=== PATIENT | male | born 1970 | race Caucasian/White ===

== ENCOUNTER 2025-10-09 11:07 | Emergency (ER) | payer MEDICAID, SELFPAY ==
[2025-10-09] VITALS (8 sets, daily range): BP systolic 142–175; BP diastolic 67–86; PULSE 64–78; RESP 11–18; TEMP 36.4–36.6; O2SAT 98–100; BMI 31.2
--- NOTE | 2025-10-09 11:47 | RAD_ITS ---
RAD/Chest 1 View (Portable)
--- NOTE | 2025-10-09 11:49 | CM.ED ---
Social Work Date of referral: 10/09/25 Reason for referral: Advanced Care Directives (ACD's) not on file. Referred by: Social Work Identification Patient provided consent to social work visit. Floor Surfacer requested a copy of ACD's which patient stated his daughter in [place] has and stated that's where he would like to go in the future. Patient did not confirm whether or not he will try and get a copy of his ACD's sent to this hospital or not. In the paperwork that came from [facility], there was a piece of paper that indicated patient is full code. Heather Mendoza, CATERING TRUCK DRIVER, DRUM REEL CUTTER
--- NOTE | 2025-10-09 11:49 | ED.VIS.CHEST ---
HPI History of Present Illness Chief Complaint: Chest Pain Informant: patient and EMS Narrative Narrative: Patient is a 55-year-old male with a history of CAD and multiple stents presenting with acute onset left-sided chest pain radiating to the left leg. Brought by EMS from [facility], where he currently resides due to muscle weakness. - Onset of symptoms approximately 1 hour prior to arrival, beginning while wheeling himself in a wheelchair after preparing to smoke a cigarette. States he was pushing himself very hard - Describes chest pain as stabbing, located on the left side, radiating down to the left thigh. - Pain worsens with deep inspiration and movement of the left leg. - Denies dyspnea or other associated symptoms. - Has a history of 9 stents placed, with the most recent stent placed more than a year ago. - Denies any recent trauma or injury to the chest or leg. PFSH PFS Medical History Past heart attack Anemia Heart failure CKD (chronic kidney disease) COPD (chronic obstructive pulmonary disease) Cirrhosis Alcoholic dementia Kidney failure Allergy/AdvReac Type Severity Reaction Status Date / Time isosorbide Allergy Unknown PT UNSURE Verified 10/09/25 11:10 OF REACTION nefazodone Allergy Unknown PT UNSURE Verified 10/09/25 11:10 OF REACTION penicillin G Allergy Unknown PT UNSURE Verified 10/09/25 11:10 OF REACTION trazodone Allergy Unknown PT UNSURE Verified 10/09/25 11:10 OF REACTION Social History Smoking Status: Current every day smoker tobacco type: cigarettes ROS ROS ED Constitutional Constitutional ED: Denies chills or fever(s) Eyes Eyes: Denies change in vision or diplopia ENT ENT ED: Denies rhinorrhea or sore throat Cardiovascular Cardiovascular: Reports as per HPI and chest pain; Denies palpitations Respiratory/Chest Respiratory/Chest: Denies cough or dyspnea Gastrointestinal Gastrointestinal: Denies abdominal pain, diarrhea, nausea or vomiting Genitourinary Genitourinary ED: Denies dysuria or hematuria Musculoskeletal Musculoskeletal: Reports as per HPI, extremity pain and muscle weakness; Denies back pain or neck pain Integumentary Denies abscess or rash Neurologic Neurologic: Denies headache(s), paresthesias or weakness Psychiatric Psychiatric: Denies suicidal thoughts EXAM Physical Exam Const Vital Signs: 10/09/25 11:11 10/09/25 12:14 10/09/25 12:14 Temperature 97.5 F L Temperature Source Oral Pulse Rate 66 66 Respiratory Rate 18 11 L Blood Pressure 153/70 H Blood Pressure Mean 97 Pulse Ox 100 98 Oxygen Delivery Method Nasal Cannula Nasal Cannula Nasal Cannula Oxygen Flow Rate (L/min) 4 10/09/25 13:00 10/09/25 14:10 10/09/25 14:28 Temperature Temperature Source Pulse Rate 64 70 66 Respiratory Rate 15 18 Blood Pressure 175/86 H Blood Pressure Mean 115 Pulse Ox 98 98 Oxygen Delivery Method Nasal Cannula Nasal Cannula Oxygen Flow Rate (L/min) 3 3 10/09/25 15:03 10/09/25 15:46 Temperature Temperature Source Pulse Rate 66 64 Respiratory Rate 16 18 Blood Pressure 142/67 H Blood Pressure Mean 92 Pulse Ox 99 Oxygen Delivery Method Nasal Cannula Oxygen Flow Rate (L/min) 3 Positive well nourished and well developed General Appearance ED: well developed and NAD HEENT Reports moist mucous membranes normocephalic and atraumatic Eyes PERRL and EOMs intact bilaterally Neck full ROM and supple Chest Wall Chest Narrative: Reproducible pain in the left pectoral musculature near the axilla, which is also reproducible with the patient abducting his arms together against resistance outstretched in front of him. This reproduces the pain that he presents with. Lower in the rib cage he is nontender. Equal breath sounds are present bilaterally. There is no crepitance or subcutaneous emphysema or abnormal skin changes in these areas. Resp normal respiratory effort and clear to auscultation bilaterally Effort and Inspection: pain with movement LUE Cardio regular rate, regular rhythm and no murmurs Rate: Negative for tachycardic Peripheral Pulses: pulses 2+ throughout GI non-tender and non-distended Auscultation: normoactive bowel sounds Palpation: soft Back/Spine no CVA tenderness General Back: other FROM Extremity normal to inspection Extremity Narrative: Mildly tender in the left anterior distal thigh quadriceps, proximal to the patellar tendon which is nontender. All compartment soft and nondistended. Full range of motion of the knee and the hip without limitation and no tenderness at the greater trochanter or the knee. No bilateral calf tenderness. General Extremety ED: Yes edema and tenderness; Negative for pulses abnormal General Extremity: edema bilateral lower extremity Details: mild; Negative for pulses abnormal Neuro oriented x3, CN's II-XII intact bilaterally and no sensory deficits noted Neuro Narrative: Some muscle weakness in the legs but able to move them and lift them. No lateralizing neurologic deficits. Sensorium / Orientation: awake and alert Skin no rashes or lesions noted and no wounds MDM MDM MDM Narrative Medical decision making narrative: Assessment: The patient is a 55-year-old male with PMH of coronary artery disease status-post multiple prior stents, chronic kidney disease, and home supplemental oxygen dependence presenting for acute left-sided stabbing chest pain radiating to the left thigh after propelling himself in a wheelchair. Pain is reproducible with pectoral muscle contraction and palpation, worsened with deep inspiration and leg movement, and there is no associated diaphoresis or new dyspnea; baseline exertional dyspnea unchanged. Initial EKG shows bifascicular block without acute ischemic changes; serial troponins 112, 110, 107 ng/L are flat, arguing against acute coronary syndrome. One-view chest X-ray shows mild cardiomegaly and mild congestion without pulmonary edema. Taken together, findings favor musculoskeletal chest wall pain and left quadriceps myofascial pain (exam inconsistent with DVT); mild stable troponin elevation likely reflects chronic myopathy/renal dysfunction rather than acute injury. Plan: - Continued home 3 L O2 via nasal cannula during ED stay; patient remained saturating 99-100%. - Administered oral tramadol for chest/leg pain with good symptomatic improvement and subsequent BP normalization. - Administered nebulized albuterol for subjective dyspnea; mild symptomatic benefit reported. - B[facility] Sawyer Dr. Reina evaluated patient in ED; in agreement with disposition once troponins remained flat. - Patient counseled on tobacco cessation; advised to stop smoking. - Discharged home with instructions for supportive care, return precautions, and outpatient cardiology follow-up given stable serial troponins and benign exam. Diagnostics: - EKG: normal sinus rhythm with bifascicular block, no ST-T ischemic changes; no acute findings. Independently interpreted by Ramon zhu. - Chest X-ray (1 view): mild cardiomegaly, mild pulmonary congestion, no pulmonary edema. - Labs: Troponin-I 112 ng/L, repeat 110 ng/L, 4-hour 107 ng/L (flat); Serum creatinine 2.42 mg/dL (baseline unknown). Consultations: - Dr. Reina, cardiology, discussed case; agrees serial flat troponins and exam support chest wall pain; concurs with discharge if third troponin stable. Reevaluations: - After tramadol: BP improved to 142/67, pain reduced, no acute distress. - Post-albuterol: patient reports slight relief of dyspnea; lungs clear; SpO2 99-100% on 3 L NC. Lying left lateral decubitus with normal VS and no distress or tachypnea. - Final assessment after third troponin 107: patient comfortable, vital signs stable; deemed safe for discharge. Lab Data Attestation: I reviewed the patient's lab results. Labs: Laboratory Results - last 24 hr 10/09/25 10/09/25 11:50 14:00 WBC 7.1 RBC 2.98 L Hgb 8.7 L Hct 26.9 L MCV 90.3 MCH 29.2 MCHC 32.3 RDW Std Deviation 51.4 H RDW Coeff of Bria 15.7 H Plt Count 344 MPV 8.8 Immature Gran % (Auto) 0.300 Neut % (Auto) 71.0 H Lymph % (Auto) 17.8 L Page % (Auto) 4.8 Eos % (Auto) 5.1 H Baso % (Auto) 1.0 Absolute Neuts (auto) 5.1 Absolute Lymphs (auto) 1.27 Nucleated RBC % 0 Sodium 139 Potassium 5.1 Chloride 105 Carbon Dioxide 23.4 Anion Gap 10 BUN 48 H Creatinine 2.42 H Estim Creat Clear Calc 39.89 L Est GFR (MDRD) Non-Af 31 L BUN/Creatinine Ratio 19.7 Glucose 120 H Calcium 8.7 Troponin T High Sens 112 H* Troponin T Hi Sens 2 Hr 110 H* Radiography Diagnostic Testing: Clinical Impression(s) from Imaging Studies Chest X-Ray 10/09/25 11:47 IMPRESSION: Cardiomegaly with mild congestion. Reading Location: [facility] Rhythm Strip Rhythm Strip: Sinus Rhythm Rate: 65 Ectopy: None EKG Initial EKG: Attestation: I personally reviewed and interpreted this EKG as follows: Interpretation: Sinus Rhythm, No Acute Injury Pattern, RBBB and - (LPFB) Prior EKG tracings: not available for review Prior: No Prior Management Discussion w/another healthcare provider: Payroll Accounting Clerk (Nuno, cardiology - agrees musculoskeletal etiology, safe for d/c) Discharge Plan Triage Chief Complaint: Chest Pain ED Provider: Ramon Lord Dx/Rx/DC Orders Clinical Impression: Muscle strain of chest wall, Acute pain of left thigh, CKD (chronic kidney disease), Elevated troponin, Dependence on continuous supplemental oxygen, Tobacco abuse counseling Instructions: ED Chest Wall Strain Primary Care Provider: Matt Jacob Referrals: Matt Jacob, [Primary Care Provider, Medical] - 1 Week if not improving Activity Restrictions/Additional Instructions: - You were evaluated for left-sided chest pain radiating to your left leg; an EKG, chest X-ray, and serial troponins showed no heart attack or pulmonary edema. - Your symptoms are most consistent with musculoskeletal pain of the chest wall and left thigh. Print Language: Kazakh Disposition Disposition: Home, Self Care
[2025-10-09 12:02] LABS: Hematocrit 26.9 % (40-54); Hemoglobin 8.7 g/dL (13.0-16.5); Immature Granulocytes Count 0.020 X10^3/uL (0.0-0.0); Mean Corp Hgb Conc 32.3 g/dL (32-36); Mean Corpuscular Volume 90.3 fL (80-94); Mean Platelet Vol. 8.8 fl (6.2-12.0); NRBC Flagged by Analyzer 0 % (0-5); Platelet Count 344 K/mm3 (150-450); RBC Distribution Width CV 15.7 % (11.6-14.6); RBC Distribution Width SD 51.4 fl (35.1-43.9); Red Blood Count 2.98 M/mm3 (4.6-6.2); White Blood Count 7.1 K/mm3 (4.4-11.0)
[2025-10-09 12:23] LABS: Anion Gap 10 (5-15); BUN 48 mg/dL (4-19); BUN/Creat Ratio 19.7 RATIO (10-20); Calcium,Total 8.7 mg/dL (7.6-11.0); Carbon Dioxide 23.4 mmol/L (21.0-32.0); Chloride 105 mmol/L (98-108); Estimated Creatinine Clearance 39.89 ml/min (50-250); Glucose 120 mg/dL (70-99); Potassium 5.1 mmol/L (3.3-5.1)
[2025-10-09 12:27] LABS: Troponin T High Sensitivity 112 ng/L (<=22)
[2025-10-09 14:22] LABS: Troponin T High Sens 2 HR 110 ng/L (<=22)
[2025-10-09] MEDS: Albuterol 2.5 MG/3 ML VIAL.NEB. INHALATION (15:00)
[2025-10-09 17:06] LABS: Troponin T High Sens 4 HR 107 ng/L (<=22)
--- NOTE | 2025-10-10 16:44 | PCM.CONS.C ---
Assessment & Plan Assessment/Plan (1) Elevated troponin: PLAN: - EKG showing bifascicular block, negative for any acute specific ischemic changes - Troponins flat: 112-> 110-->107 - Patient with noncardiac chest pain - Suspect chronic myocardial injury in the setting of current obstructive coronary disease (endorses previous PCIs), mild decompensated heart failure causing microcirculatory compression with increased LVEDP (cardiomegaly on chest x-ray with mild congestion), and chronic kidney disease, with creatinine 2.4, eGFR 31 Plan - No further cardiac testing indicated at this time - Patient admits he is on antiplatelets and high intensity statin through his current facility, continue follow-up with established driller's offsider - IV diuretics per ED team; patient without overt volume overload, laying flat, appears clinically compensated (2) Chest pain: PLAN: - Suspect musculoskeletal pain: Entirely reproducible, stemming from exerting his body wheeling himself in his wheelchair. Main complaint is leg pain. See assessment above Plan - Treatment of musculoskeletal pain per ED team HPI Consult Data Date of Consult: 10/09/25 HPI Narrative Reason for Consultation: Elevated troponins HPI Narrative: ERIKA TARIQ, is a 55 M who presented to [place] ED with complaint of chest pain. Patient is a poor historian, but cites he had 1 episode of chest pain sometime in the last couple years where multiple stents were placed. He admits he has had 9 stents he is unable to qualify his cardiac history further. He is mostly sedentary and gets around with a wheelchair. He admits he was going to smoke a cigarette an hour or 2 before arrival, and says as he was wheeling himself very quickly he felt chest pain in the center of his chest and ribs, radiating to his leg. EKG notable for bifascicular block, without signs of ischemia or infarction. High sensitive troponins: 112-> 110-->107. Chest x-ray notable for cardiomegaly and mild pulmonary vascular congestion. On assessment, patient was hemodynamically stable satting well on 3 L (patient's baseline oxygen requirement), BP: 143/77, HR: 78. Patient was examined at bedside, and was sleeping comfortably, laying flat. Upon waking the patient up, patient states he still was having chest pain. On exam, this pain was entirely reproducible by pushing on his lateral ribs and chest wall. Patient flinched and grabbed his leg when his chest was gently pressed. Any maneuvering of his left leg also triggered the pain in his chest. He admits this is the same exact pain that he felt when he was wheeling himself in the wheelchair. [facility] Medical History Past heart attack Anemia Heart failure CKD (chronic kidney disease) COPD (chronic obstructive pulmonary disease) Cirrhosis Alcoholic dementia Kidney failure Allergy/AdvReac Type Severity Reaction Status Date / Time isosorbide Allergy Unknown PT UNSURE Verified 10/09/25 11:10 OF REACTION nefazodone Allergy Unknown PT UNSURE Verified 10/09/25 11:10 OF REACTION penicillin G Allergy Unknown PT UNSURE Verified 10/09/25 11:10 OF REACTION trazodone Allergy Unknown PT UNSURE Verified 10/09/25 11:10 OF REACTION Social History Smoking Status: Current every day smoker tobacco type: cigarettes ROS ROS Narrative 14 point review of systems reviewed, and negative unless specified in HPI above Physical Exam Narrative ?Gen: NAD, appears older than stated age ?HEENT: Normocephalic/Atraumatic, MMM ?Neck: Supple, no JVD ?Pulm: Normal work of breathing, CTA bilaterally with no wheezes or crackles ?CV: RRR, normal S1/S2, no m/r/g ?Abd: Soft, NT/ND ?Extr: Warm to touch, no LE edema, distal pulses intact and symmetric in upper and lower extremities ?Neuro: No gross focal deficits, normal speech ?Psych: Normal affect, answers questions appropriately Objective Data Vital Signs: Vital Signs Temp Pulse Resp BP Pulse Ox O2 Del Method O2 Flow Rate 97.9 F 78 18 143/77 H 99 Nasal Cannula 3 10/09/25 17:45 10/09/25 17:45 10/09/25 17:45 10/09/25 17:45 10/09/25 17:45 10/09/25 17:45 10/09/25 17:45 Oxygen Flow Rate (L/min) 3 Oxygen Delivery Method Nasal Cannula Weight: 211 lb 10.3 oz Body Mass Index (BMI) 31.2 Lab / Micro Data 10/09/25 11:50 10/09/25 11:50 Labs: Laboratory Results - last 24 hr 10/09/25 16:38: Troponin T Hi Sens 4Hr 107 H* Rhythm Strip Rhythm Strip: Sinus Rhythm Rate: 65 Ectopy: None Cardiology Labs/Tests Rhythm: EKG: ECHO: Stress Test: Cardiac Cath: PCI: CT Surgery: Holter monitor: EPS: PPM: CXR: Chest CT Scan: ONOFRE Risk Score for UA/STEMI Assesmment (YES = 1) Risk Stratification Applicable: No
== END 2025-10-09 19:39 | disposition skilled nursing facility (03) ==
PROVIDERS: Emergency Provider Emergency Medicine; Visit Provider Emergency Medicine
DX: S29.011A Strain of muscle and tendon of front wall of thorax, initial encounter (principal); J44.9 Chronic obstructive pulmonary disease, unspecified; R07.89 Other chest pain; X58.XXXA Exposure to other specified factors, initial encounter; M79.652 Pain in left thigh; N18.9 Chronic kidney disease, unspecified; R79.89 Other specified abnormal findings of blood chemistry; I25.10 Atherosclerotic heart disease of native coronary artery without angina pectoris; I25.2 Old myocardial infarction; F17.210 Nicotine dependence, cigarettes, uncomplicated; Z95.5 Presence of coronary angioplasty implant and graft; Z99.81 Dependence on supplemental oxygen
CPT/HCPCS: 71045; 80048; 84484; 85025; 93005; 94640; 99285; A4216